=== PATIENT | female | born 1940 | race Caucasian/White ===

== ENCOUNTER 2018-05-10 17:44 | Inpatient (IN) | payer OTHER ==
[~2018-05-10] VITALS: Ht 152.4 cm; Wt 68.0 kg
[2018-05-10] MEDS ORDERED: PACERONE200 MG (18:03)
[2018-05-10] MEDS ORDERED: PANTOPRAZOLE SO20 MG (18:03)
[2018-05-10] MEDS ORDERED: LISINOPRIL40 MG (18:04)
[2018-05-10] MEDS ORDERED: CARVEDILOL25 MG (18:04)
[2018-05-10] MEDS ORDERED: AMLODIPINE BESY10 MG (18:04)
== END 2018-05-14 06:40 | disposition designated cancer center or children's hospital (05) | DRG 308 ==
LOC: ER 17:44 → SEC-K 21:31 → ICU-2 21:31
PROC: B246ZZZ Ultrasonography of Right and Left Heart (ICD-10-PCS; principal; 2018-05-10)
DX: I47.2 Ventricular tachycardia (principal); N18.6 End stage renal disease; I12.0 Hypertensive chronic kidney disease with stage 5 chronic kidney disease or end stage renal disease; N17.8 Other acute kidney failure; I25.10 Atherosclerotic heart disease of native coronary artery without angina pectoris; E11.9 Type 2 diabetes mellitus without complications; Z79.4 Long term (current) use of insulin; E11.22 Type 2 diabetes mellitus with diabetic chronic kidney disease; Z99.2 Dependence on renal dialysis